=== PATIENT | male | born 1995 | race African-American/Black ===

== ENCOUNTER 2017-05-11 21:22 | Emergency (ER) | payer MEDICAID ==
[~2017-05-11] VITALS: Ht 185.4 cm; Wt 81.6 kg
[2017-05-12 02:39] VITALS: BP 110/71
[2017-05-12] MEDS ORDERED: IBUPROFEN 800 MG TAB PO ONE (02:45)
== END 2017-05-12 03:15 | disposition home or self-care (01) ==
LOC: ER 21:26
DX: S00.01XA Abrasion of scalp, initial encounter (principal); W26.9XXA Contact with unspecified sharp object(s), initial encounter; Y93.89 Activity, other specified; Y99.8 Other external cause status; Y92.89 Other specified places as the place of occurrence of the external cause

== ENCOUNTER 2017-07-25 01:04 | Emergency (ER) | payer MEDICAID ==
[~2017-07-25] VITALS: Ht 185.4 cm; Wt 81.6 kg
[2017-07-25 01:19] VITALS: BP 116/82
[2017-07-25] MEDS ORDERED: IBUPROFEN 600 MG TAB PO ONE (03:00)
[2017-07-25] MEDS ORDERED: CYCLOBENZAPRINE HCL 10 MG TAB PO ONE (03:00)
== END 2017-07-25 03:05 | disposition home or self-care (01) ==
LOC: ER 01:04
DX: G44.209 Tension-type headache, unspecified, not intractable (principal)

== ENCOUNTER 2019-04-22 05:32 | Emergency (ER) | payer MEDICAID ==
[~2019-04-22] VITALS: Ht 185.4 cm; Wt 81.6 kg
[2019-04-22 06:57] LABS: Albumin 4.2 g/dL (3.4-5.0); Anion Gap 8 (5-15); Blood Urea Nitrogen 8 mg/dL (7-18); Calcium 8.5 mg/dL (8.5-10.1); Carbon Dioxide 25 mmol/L (21-32); Chloride 109 mmol/L (98-107); Glucose 87 mg/dL (74-106); Potassium 3.5 mmol/L (3.5-5.1); Sodium 142 mmol/L (136-145)
[2019-04-22 07:02] LABS: Alanine Aminotransferase 32 U/L (16-61); Alkaline Phosphatase 62 U/L (45-117); Aspartate Aminotransferase 15 U/L (15-37); BUN/Creatinine Ratio 5.8; Bilirubin, Total 0.4 mg/dL (0.2-1.0); GFR African American 81 mL/min; GFR Non-African American 67 mL/min; Total Protein 7.5 g/dL (6.4-8.2)
[2019-04-22 07:03] LABS: Basophils # (auto) 0 uL; Basophils % (auto) 0.3 % (0.0-2.0); Eosinophils # (auto) 0.1 uL; Monocytes # (auto) 0.5 uL; Neutrophils # (auto) 1.9 uL
[2019-04-22 07:07] LABS: Eosinophils % (auto) 1.8 % (0.0-7.0); Hematocrit 44.8 % (41.0-53.0); Hemoglobin 15.2 g/dL (13.5-17.5); Lymphocytes # (auto) 1.6 uL; Lymphocytes % (auto) 39.1 % (10.0-50.0); Mean Corpuscular Hemoglobin 27.9 pg (28.0-32.0); Mean Corpuscular Volume 82.2 fL (80.0-100.0); Monocytes % (auto) 11.8 % (0.0-12.0); Nucleated Red Blood Cells % 0.8 %; Platelet Count (auto) 178 10^3/uL (140-450); Red Blood Cells 5.45 10^6/uL (4.5-5.90); Red Cell Distribution Width 14.2 % (11.8-14.3); White Blood Cell 4.1 10^3/uL (4.4-10.8)
[2019-04-22 07:32] LABS: Urine WBC None Seen /hpf (0 - 3)
[2019-04-22 07:49] LABS: Urine Bacteria NONE SEEN /hpf (None Seen); Urine Blood Negative /uL (Negative); Urine Specific Gravity 1.016 (1.001-1.035)
[2019-04-22 08:07] LABS: Alcohol, Urine < 3.0 mg/dL (0-5); Amphetamine Screen, Urine NEGATIVE (NEGATIVE); Barbiturate Scree,Urine NEGATIVE (NEGATIVE); Benzodiazephine Screen, Urine NEGATIVE (NEGATIVE); Cannabinoid Screen, Urine POSITIVE (NEGATIVE); Cocaine Screen, Urine NEGATIVE (NEGATIVE); Opiate Scree,Urine NEGATIVE (NEGATIVE); Phencyclidine Screen, Urine NEGATIVE (NEGATIVE)
[2019-04-22 09:21] VITALS: BP 124/76
== END 2019-04-22 09:27 | disposition home or self-care (01) ==
LOC: ER 05:36
DX: R07.89 Other chest pain (principal); J06.9 Acute upper respiratory infection, unspecified; F12.90 Cannabis use, unspecified, uncomplicated
CPT/HCPCS: 36415; 71045; 80053; 80307; 81001; 84484; 85025; 93005; 94761

== ENCOUNTER 2019-05-09 08:30 | Emergency (ER) | payer MEDICAID ==
[~2019-05-09] VITALS: Ht 182.9 cm; Wt 82.1 kg
[2019-05-09 09:06] VITALS: BP 128/78
== END 2019-05-09 09:22 | disposition home or self-care (01) ==
LOC: ER 08:30
DX: J20.9 Acute bronchitis, unspecified (principal); F12.90 Cannabis use, unspecified, uncomplicated

== ENCOUNTER → 2019-05-27 | Emergency (ER) | payer MEDICAID ==
[~2019-05-27] VITALS: Ht 185.4 cm; Wt 81.6 kg
[2019-05-27 05:17] VITALS: BP 112/63
[2019-05-27 05:37] LABS: Urine WBC None Seen /hpf (0 - 3)
[2019-05-27 06:01] LABS: Urine Bacteria NONE SEEN /hpf (None Seen); Urine Blood Negative /uL (Negative); Urine Mucus FEW (None Seen); Urine Specific Gravity 1.028 (1.001-1.035)
[2019-05-27 06:50] LABS: Alcohol, Urine < 3.0 mg/dL (0-5); Barbiturate Scree,Urine NEGATIVE (NEGATIVE); Opiate Scree,Urine NEGATIVE (NEGATIVE)
[2019-05-27 06:51] LABS: Amphetamine Screen, Urine NEGATIVE (NEGATIVE); Benzodiazephine Screen, Urine NEGATIVE (NEGATIVE); Cannabinoid Screen, Urine POSITIVE (NEGATIVE); Cocaine Screen, Urine NEGATIVE (NEGATIVE); Phencyclidine Screen, Urine NEGATIVE (NEGATIVE)
== END | disposition left against medical advice (07) ==
LOC: ER 04:06
DX: R10.9 Unspecified abdominal pain (principal); Z53.21 Procedure and treatment not carried out due to patient leaving prior to being seen by health care provider
CPT/HCPCS: 80307; 81001

== ENCOUNTER 2019-06-04 00:24 | Emergency (ER) | payer MEDICAID ==
[~2019-06-04] VITALS: Ht 185.4 cm; Wt 77.1 kg
[2019-06-04] MEDS ORDERED: cefTRIAXone SOD 1,000 MG VL IM ONE (07:30)
[2019-06-04] MEDS ORDERED: cefTRIAXone 1GM/50ML D5W 50 ML IV ONE ×2 (08:07→08:15)
[2019-06-04 08:15] VITALS: BP 120/76
== END 2019-06-04 09:13 | disposition home or self-care (01) ==
LOC: ER 00:24 → EDBD 00:24 → ER 09:13
DX: L03.113 Cellulitis of right upper limb (principal); F12.90 Cannabis use, unspecified, uncomplicated
CPT/HCPCS: 36415; 80320; 96365; 99283; J0696

== ENCOUNTER 2020-03-26 20:42 | Emergency (ER) | payer MEDICAID ==
[~2020-03-26] VITALS: Ht 182.9 cm; Wt 81.6 kg
[2020-03-26 20:53] VITALS: BP 110/69
== END 2020-03-27 00:28 | disposition left against medical advice (07) ==
LOC: ER 20:42 → EDBD 20:42 → ER 03-27 00:28
DX: M25.552 Pain in left hip (principal); M54.5 Low back pain; M25.562 Pain in left knee; Z53.21 Procedure and treatment not carried out due to patient leaving prior to being seen by health care provider; W10.9XXA Fall (on) (from) unspecified stairs and steps, initial encounter; Y93.89 Activity, other specified; Y92.89 Other specified places as the place of occurrence of the external cause; Y99.8 Other external cause status
CPT/HCPCS: 72170

== ENCOUNTER 2024-06-01 16:20 | Emergency (ER) | payer MEDICAID ==
[~2024-06-01] VITALS: Ht 182.9 cm; Wt 119.0 kg
[2024-06-01 18:23] VITALS: BP 138/72; PULSE 78; RESP 18; TEMP 98.1; O2SAT 100
== END 2024-06-01 19:02 | disposition left against medical advice (07) ==
LOC: ER 16:20
DX: K08.89 Other specified disorders of teeth and supporting structures (principal); Z53.21 Procedure and treatment not carried out due to patient leaving prior to being seen by health care provider